=== PATIENT | male | born 1950 | race Caucasian/White ===

== ENCOUNTER 2021-08-25 11:46 | Inpatient (IN) ==
[2021-08-25 13:28] LABS: Basophils # 0.1 10*3/uL (0.0-0.2); Basophils % 0.8 % (0.0-0.8); Eosinophils # 0.3 10*3/uL (0.0-0.87); Eosinophils % 3.3 % (0.00-10.9); Hematocrit 45.5 VOL% (42.0-52.0); Hemoglobin 14.7 GM/DL (14.0-18.0); Immature Granulocytes % 0.3 %; Immature Granulocytes Absolute 0.03 #; Lymphocytes # 2.5 10*3/uL (1.4-4.0); Lymphocytes % 28.9 % (21.2-54.2); Mean Corpuscular HGB Conc 32.3 GM/DL (32-36); Mean Corpuscular Volume 92.7 FL (87-102); Mean Platelet Volume 11.2 FL (9.6-12.0); Monocytes % 10.1 % (1.7-12.7); Neutrophils % 56.6 % (38.7-73.9); Platelet Count 214 T/CUMM (130-400); Red Blood Count 4.91 MC/CUMM (3.8-5.5); Red Cell Distribution Width 14.2 % (9.3-17.3); White Blood Count 8.7 T/CUMM (4-12)
[2021-08-25 13:56] LABS: Bilirubin,Total 0.4 MG/DL (0.20-1.00); Calcium 9.3 MG/DL (8.5-10.1); Osmolality,Calculated 280.4 MOS/KG (273-304); Potassium 4.1 MMOL/L (3.5-5.1); Total Protein 8.7 G/DL (6.4-8.2)
[2021-08-25 14:36] LABS: INR 1.1; PT Patient Result 11.8 SECS (10.5-12.0)
[2021-08-25 14:51] LABS: Partial Thromboplastin Time 20.6 SECS (23.8-32.1)
[2021-08-25] MEDS ORDERED: hydrALAZINE 20 MG/1 ML VIAL ONE (18:04)
[2021-08-25] MEDS ORDERED: hydrALAZINE 20 MG/1 ML VIAL IV STA (18:27)
[2021-08-25] MEDS ORDERED: GLUCAGON 1 MG VIAL IM PRN (19:29)
[2021-08-25] MEDS ORDERED: LABETALOL 20 MG/4 ML SYRINGE IV PRN (19:29)
[2021-08-25] MEDS ORDERED: ACETAMINOPHEN 325 MG TABLET PO PRN (19:29)
[2021-08-25] MEDS ORDERED: ONDANSETRON 4 MG/2 ML VIAL IV PRN (19:29)
[2021-08-25] MEDS ORDERED: hydrALAZINE 20 MG/1 ML VIAL IV PRN (19:29)
[2021-08-25] MEDS ORDERED: DEXTROSE 10% 250 ML BAG IV PRN (19:47)
[2021-08-25] MEDS: SODIUM CHLORIDE 0.9% 1,000 ML IV SCH (20:32)
[2021-08-25] MEDS: ENOXAPARIN 40 MG/0.4 ML SYRINGE SUBCUT SCH (20:51)
[2021-08-25] MEDS ORDERED: ROSUVASTATIN 10 MG TABLET PO SCH (21:00)
[2021-08-25 23:15] LABS: Barbiturates Screen,Urine Negative (Negative); Benzodiazepines Screen,Urine Negative (Negative); Cannabinoid Screen,Urine Negative (Negative); Opiate Screen,Urine Negative (Negative); Phencyclidine Screen,Urine Negative (Negative)
[2021-08-26 04:34] LABS: Basophils # 0.1 10*3/uL (0.0-0.2); Basophils % 0.7 % (0.0-0.8); Eosinophils # 0.2 10*3/uL (0.0-0.87); Eosinophils % 2.2 % (0.00-10.9); Hematocrit 43.2 VOL% (42.0-52.0); Hemoglobin 14.4 GM/DL (14.0-18.0); Immature Granulocytes % 0.3 %; Immature Granulocytes Absolute 0.03 #; Lymphocytes # 2.5 10*3/uL (1.4-4.0); Lymphocytes % 25.4 % (21.2-54.2); Mean Corpuscular HGB Conc 33.3 GM/DL (32-36); Mean Corpuscular Volume 90.8 FL (87-102); Mean Platelet Volume 11.4 FL (9.6-12.0); Monocytes % 10.4 % (1.7-12.7); Platelet Count 244 T/CUMM (130-400); Red Blood Count 4.76 MC/CUMM (3.8-5.5); Red Cell Distribution Width 14.2 % (9.3-17.3); White Blood Count 9.8 T/CUMM (4-12)
[2021-08-26 05:06] LABS: Albumin 3.9 G/DL (3.4-5.0); Bilirubin,Total 0.7 MG/DL (0.20-1.00); Calcium 8.8 MG/DL (8.5-10.1); Osmolality,Calculated 280.4 MOS/KG (273-304); Potassium 3.5 MMOL/L (3.5-5.1); Risk Ratio 2.39; Thyroid Stimulating Hormone 4.06 uIU/ml (0.358-3.74); Total Protein 8.1 G/DL (6.4-8.2)
[2021-08-26] MEDS ORDERED: LISINOPRIL/HCTZ 20-25 MG TABLET PO SCH (09:00)
[2021-08-26] MEDS: ASPIRIN 325 MG TABLET PO SCH (13:22)
[2021-08-26] MEDS: PANTOPRAZOLE 40 MG TABLET PO SCH (13:22)
[2021-08-26] MEDS: amLODIPine 10 MG TABLET PO SCH (13:22)
[2021-08-26] MEDS: ENOXAPARIN 40 MG/0.4 ML SYRINGE SUBCUT SCH (20:32)
[2021-08-26] MEDS ORDERED: ROSUVASTATIN 20 MG TABLET PO SCH (21:00)
[2021-08-27 05:33] LABS: Basophils # 0.1 10*3/uL (0.0-0.2); Basophils % 0.9 % (0.0-0.8); Eosinophils # 0.3 10*3/uL (0.0-0.87); Eosinophils % 3.5 % (0.00-10.9); Hemoglobin 13.7 GM/DL (14.0-18.0); Immature Granulocytes % 0.2 %; Immature Granulocytes Absolute 0.02 #; Lymphocytes # 2.9 10*3/uL (1.4-4.0); Lymphocytes % 33.6 % (21.2-54.2); Mean Corpuscular HGB Conc 31.9 GM/DL (32-36); Mean Corpuscular Volume 93.1 FL (87-102); Mean Platelet Volume 11.8 FL (9.6-12.0); Monocytes % 11.7 % (1.7-12.7); Neutrophils % 50.1 % (38.7-73.9); Platelet Count 188 T/CUMM (130-400); Red Blood Count 4.62 MC/CUMM (3.8-5.5); Red Cell Distribution Width 14.3 % (9.3-17.3); White Blood Count 8.7 T/CUMM (4-12)
[2021-08-27 05:50] LABS: Calcium 8.8 MG/DL (8.5-10.1); Osmolality,Calculated 281.4 MOS/KG (273-304); Potassium 3.9 MMOL/L (3.5-5.1)
[2021-08-27] MEDS: SODIUM CHLORIDE 0.9% 1,000 ML IV SCH (06:38)
[2021-08-27] MEDS: ASPIRIN 325 MG TABLET PO SCH (08:39)
[2021-08-27] MEDS: amLODIPine 10 MG TABLET PO SCH (08:40)
[2021-08-27] MEDS: PANTOPRAZOLE 40 MG TABLET PO SCH (08:40)
[2021-08-27] MEDS ORDERED: hydroCHLOROthiazide 25 MG TABLET PO SCH (09:00)
[2021-08-27] MEDS ORDERED: lisinopriL 20 MG TABLET PO SCH (14:30)
[2021-08-27 14:53] VITALS: BP 174/84
== END 2021-08-27 14:35 | disposition home or self-care (01) | DRG 66 ==
LOC: N.EDINP 11:46 → N.ED 11:46 → SUATTDRO 19:29 → N.5E 08-26 15:01
PROVIDERS: ADMIT Hospitalist; ATTEND Internal Medicine